=== PATIENT | female | born 1970 | race Two or more races ===

== ENCOUNTER 2024-07-12 10:58 | Emergency (ER) | payer OTHER ==
[~2024-07-12] VITALS: Ht 162.6 cm; Wt 79.4 kg
[2024-07-12] MEDS ORDERED: LOSARTAN POTASS50 MG (11:10)
[2024-07-12 11:58] LABS: BASO % 0.7 % (0.1-1.2); EOS # 0.17 (0.04-0.54); EOS % 1.7 % (0.7-7.0); HEMATOCRIT 40.5 % (34.1-44.9); HEMOGLOBIN 13.3 g/dL (11.2-15.7); LYMPH # 2.76 (1.18-3.74); LYMPH % 27.3 % (19.3-53.1); MEAN CORPUSCULAR HEMOGLOBIN 28.1 pg (25.6-32.2); MONO # 0.67 (0.24-0.82); MONO % 6.6 % (4.7-12.5); NEUT % 63.4 % (34.0-71.1); PLATELET COUNT 392 K/uL (163-369); RED BLOOD COUNT 4.73 M/uL (3.93-5.22); RED CELL DISTRIBUTION WIDTH 13.1 % (11.6-14.4)
== END 2024-07-12 13:23 | disposition home or self-care (01) ==
LOC: ER 10:58
PROVIDERS: Emergency Medicine
DX: I10 Essential (primary) hypertension (principal); R11.0 Nausea